=== PATIENT | male | born 1950 | race Caucasian/White ===

== ENCOUNTER 2017-06-14 10:25 | Emergency (ER) | payer MEDICAID ==
[2017-06-14 12:09] VITALS: BP 151/97
== END 2017-06-14 12:09 | disposition home or self-care (01) ==
LOC: ED 10:25
DX: J44.1 Chronic obstructive pulmonary disease with (acute) exacerbation (principal); F17.200 Nicotine dependence, unspecified, uncomplicated; Z71.6 Tobacco abuse counseling
CPT/HCPCS: 99406; J7512; J7613; J7644; Q0092

== ENCOUNTER 2017-09-12 10:14 | Emergency (ER) | payer MEDICAID ==
[~2017-09-12] VITALS: Ht 172.7 cm; Wt 58.0 kg
[2017-09-12 10:25] VITALS: Ht 172.7 cm; Wt 58.0 kg
[2017-09-12 11:40] VITALS: BP 148/68
== END 2017-09-12 11:40 | disposition home or self-care (01) ==
LOC: ED 10:14
DX: J44.1 Chronic obstructive pulmonary disease with (acute) exacerbation (principal); Z76.0 Encounter for issue of repeat prescription
CPT/HCPCS: J7512; J7613; J7644

== ENCOUNTER 2017-11-12 12:04 | Emergency (ER) | payer MEDICAID ==
[~2017-11-12] VITALS: Ht 172.7 cm; Wt 58.0 kg
[2017-11-12 12:08] VITALS: Ht 172.7 cm; Wt 58.0 kg
[2017-11-12 14:15] VITALS: BP 124/72
== END 2017-11-12 14:15 | disposition home or self-care (01) ==
LOC: ED 12:04
DX: J44.1 Chronic obstructive pulmonary disease with (acute) exacerbation (principal); F17.210 Nicotine dependence, cigarettes, uncomplicated
CPT/HCPCS: 99406; J7512; J7613; J7644

== ENCOUNTER 2018-01-21 09:00 | Emergency (ER) | payer MEDICAID ==
[~2018-01-21] VITALS: Ht 172.7 cm; Wt 57.6 kg
[2018-01-21 09:02] VITALS: Ht 172.7 cm; Wt 57.6 kg
[2018-01-21 09:35] LABS: BASOPHIL % 0.4 % (0-2)
[2018-01-21 09:39] LABS: PLATELET COUNT 116 x10^3mcL (130-400)
[2018-01-21 09:47] LABS: CALCIUM 9.1 mg/dL (8.5-10.1); CARBON DIOXIDE 31.7 mmol/L (21-32); CHLORIDE SERUM 105 mmol/L (98-107); CREATININE SERUM 0.8 mg/dL (0.7-1.3); GFR1 > 60 mL/min; GLUCOSE SERUM 109 mg/dL (74-106); POTASSIUM SERUM 4.8 mmol/L (3.5-5.1); SODIUM SERUM 139 mmol/L (136-145)
[2018-01-21 09:54] LABS: ALBUMIN 3.7 g/dL (3.4-5.0); ALKALINE PHOSPHATASE 75 U/L (46-116); ALT/SGPT 22 U/L (16-63); AST/SGOT 15 U/L (15-37); BILIRUBIN TOTAL 0.51 mg/dL (0.20-1.00); CHOLESTEROL 177 mg/dL (<200); HDL CHOLESTEROL 63 mg/dL (40-60); TOTAL PROTEIN, SERUM 6.7 g/dL (6.4-8.2)
[2018-01-21 11:15] VITALS: BP 127/74
== END 2018-01-21 11:15 | disposition home or self-care (01) ==
LOC: ED 09:00
PROVIDERS: Emergency Medicine
DX: J44.1 Chronic obstructive pulmonary disease with (acute) exacerbation (principal); F17.210 Nicotine dependence, cigarettes, uncomplicated
CPT/HCPCS: 36600; 83880; 99406; J2930; J7030; J7613; J7644; Q0092

== ENCOUNTER 2018-07-11 08:51 | Emergency (ER) | payer BC ==
[~2018-07-11] VITALS: Ht 165.1 cm; Wt 59.9 kg
[2018-07-11 08:56] VITALS: Ht 165.1 cm; Wt 59.9 kg
[2018-07-11 09:29] LABS: BASOPHIL % 0.8 % (0-2)
[2018-07-11 09:30] LABS: PLATELET COUNT 112 x10^3mcL (130-400); RED CELL DISTRIBUTION WIDTH 14.6 % (11.5-14.5)
[2018-07-11 09:38] LABS: CALCIUM 8.5 mg/dL (8.5-10.1); CARBON DIOXIDE 31.9 mmol/L (21-32); CHLORIDE SERUM 103 mmol/L (98-107); CREATININE SERUM 0.8 mg/dL (0.7-1.3); GFR1 > 60 mL/min; GLUCOSE SERUM 102 mg/dL (74-106); POTASSIUM SERUM 4.2 mmol/L (3.5-5.1); SODIUM SERUM 138 mmol/L (136-145)
[2018-07-11 09:44] LABS: ALBUMIN 3.5 g/dL (3.4-5.0); ALKALINE PHOSPHATASE 74 U/L (46-116); ALT/SGPT 26 U/L (16-63); AST/SGOT 15 U/L (15-37); BILIRUBIN TOTAL 0.3 mg/dL (0.20-1.00); CHOLESTEROL 140 mg/dL (<200); HDL CHOLESTEROL 52 mg/dL (40-60); TOTAL PROTEIN, SERUM 6.7 g/dL (6.4-8.2)
[2018-07-11 11:39] VITALS: BP 120/85
== END 2018-07-11 11:38 | disposition home or self-care (01) ==
LOC: ED 08:51
PROVIDERS: Emergency Medicine
DX: J44.1 Chronic obstructive pulmonary disease with (acute) exacerbation (principal); J45.909 Unspecified asthma, uncomplicated; F17.200 Nicotine dependence, unspecified, uncomplicated; Z89.022 Acquired absence of left finger(s)
CPT/HCPCS: 99406; J2930; J7030; J7613; J7644

== ENCOUNTER 2018-12-10 10:05 | Inpatient (IN) | payer MEDICAID ==
[~2018-12-10] VITALS: Ht 167.6 cm; Wt 51.3 kg
[2018-12-10 10:14] VITALS: Ht 167.6 cm; Wt 51.3 kg
--- NOTE | 2018-12-10 10:20 | NUR ---
PRESENTS TO ED FOR COUGH X5 DAYS WITH FEVER THAT STARTED LAST NIGHT. PT STS HE IS STILL A CURRENT SMOKER AND COUGH HAS GOTTEN SIGNIFICANTLY WORSE. REPORTS PRODUCTIVE COUGH WITH YELLOW SPUTUM; AUDIBLE RHONCHI TO BILATERAL UPPER LOBES WITH CONGESTED BILATERAL LOWER LOBES. CONNECTED TO FULL BUTTON SPINDLER, CHANGED INTO GOWN, CALL LIGHT IS WITHIN REACH. AWAITING MSE
--- NOTE | 2018-12-10 10:59 | NUR ---
AMBULATED TO BATHROOM WITH STEADY GAIT TO PROVIDE URINE SAMPLE
--- NOTE | 2018-12-10 11:02 | NUR ---
XRAY AT BEDSIDE
[2018-12-10 11:06] LABS: BASOPHIL % 0.5 % (0-2); PLATELET COUNT 223 x10^3mcL (130-400)
[2018-12-10 11:12] LABS: CALCIUM 9.1 mg/dL (8.5-10.1); CARBON DIOXIDE 31.5 mmol/L (21-32); CHLORIDE SERUM 106 mmol/L (98-107); CREATININE SERUM 0.7 mg/dL (0.7-1.3); GFR1 > 60 mL/min; GLUCOSE SERUM 135 mg/dL (74-106); POTASSIUM SERUM 4.6 mmol/L (3.5-5.1); SODIUM SERUM 146 mmol/L (136-145)
[2018-12-10 11:13] LABS: RED CELL DISTRIBUTION WIDTH 14.6 % (11.5-14.5)
[2018-12-10 11:22] LABS: UA SPECIFIC GRAVITY >=1.030 (1.005-1.035); microscopic required? YES; urine erythrocyte NEGATIVE (NEGATIVE)
[2018-12-10 11:24] LABS: ALKALINE PHOSPHATASE 67 U/L (46-116); ALT/SGPT 21 U/L (16-63); AMYLASE 30 U/L (25-115); AST/SGOT 9 U/L (15-37); LIPASE 53 IU/L (73-393); T4(THYROXINE) 7.5 ug/dL (4.7-13.3); TOTAL PROTEIN, SERUM 6.6 g/dL (6.4-8.2)
[2018-12-10 11:31] LABS: ALBUMIN 2.5 g/dL (3.4-5.0); CHOLESTEROL 110 mg/dL (<200); HDL CHOLESTEROL 21 mg/dL (40-60)
[2018-12-10 11:56] LABS: AMPHETAMINE QUAL UR NONE DETECTED (See below)
[2018-12-10] MEDS ORDERED: ALBUTEROL0.63 MG/3 NEB (12:11)
--- NOTE | 2018-12-10 13:04 | NUR ---
CALLED REPORT TO PAUL WAGNER TO ASSUME CARE OF PT IN TELE.
--- NOTE | 2018-12-10 13:30 | NUR ---
RECEIVED PATIENT FROM ED WITH NURSE VIA KELLIE. ADMIT STARTED BY SURU. PATIENT A/O X4 ON 5 L VIA NC, DECREASED TO 3. PATIENT NOT COMPLAINING OF PAIN AT THIS TIME. ONLY WITH OCCASIONAL COUGH. PLACED IN POSITION OF COMFORT, TELE 7. PATIENT ORIETED TO ROOM, CALL LIGHT FUNCTION AND NEED TO CALL FOR ASSISTANCE. BED IN LOWEST POSITION WITH HEAD OF BED RAISED TO FACILITATE BREATHING
[2018-12-10 13:32] VITALS: BP 117/61
--- NOTE | 2018-12-10 13:46 | NUR ---
RECEIVED PT FROM ED VIA [employer]. ORIENTED PT TO ROOM AND SURROUNDINGS. IV NOTED TO LAC PATENT AND INTACT. TELE 7 PLACED ON PT READING SR WITH PVC. INSTRUCTED PT ON THE USE OF CALL LIGHT FOR ASSISTANCE. ENDORSED PT TO PRIMARY NURSE KRISTY
--- NOTE | 2018-12-10 14:51 | NUR ---
PATIENT RESTING IN BED NO C/O SOB AT THIS TIME. SOLUMEDROL IVP GIVEN VIA IV LAC PATIENT. NEED MET, CALL LIGHT WITHIN REACH.
--- NOTE | 2018-12-10 16:02 | NUR ---
ADMINISTERED ANTIBIOTIC PER AUG. PATIENT SELF AMBULATED TO RESTROOM TO VOID. AFTER RETURNING TO SPO2 WAS 87 SO REPLACED NC WITH 2L O2. INSTRUCTED PATIENT TO CONTINUE TO COUGH UP SPUTUM IF ABLE AND TO CALL FOR ASSISTANCE IF HAVING DIFFICULTY BREATHING. CALL LIGHT WITHIN REACH
--- NOTE | 2018-12-10 16:52 | NUR ---
ADMINISTERED MEDICATION PER MAR. PATIENT SITTING UP IN BED, NO COMPLAINTS, NO SOB AT THIS TIME. CALL [facility] WITHIN REACH
[2018-12-10 17:10] VITALS: BP 120/73
[2018-12-10 19:50] VITALS: BP 111/60
--- NOTE | 2018-12-10 19:50 | NUR ---
RECEIVED PT FROM AM NURSE, PT ON BED WATCHING TV. PT AAOX4, TELE#7 DENIES CP/PRESSURE AT THIS TIME. [place]ALE PULSES TO BLE AND BUE, NO EDEMA NOTED. WHEEZZING TO SENTHIL UPPER LOBES, DIMINISHED BREATH SOUNDS TO BLI LOWER LOBES, BREATHING EVEN AND UNLABORED ON 2L NC O2 97% , NO SIGNS OF RESP DISTRESS NOTED. ABD SOFT AND ROUND, ACTIVE BOWEL SOUNDS X4 QUAD. VOIDS FREELY BRP, GENERALIZED WEAKNESS, ABULAROTY WITH ASSIST. SKIN INTACT, IV INFUSING WELL TO LAC. BED IN LOWEST POSITION, CALL LIGHT WITHING REACH, WILL CONTINUE TO MONITOR.
[2018-12-10 21:00] VITALS: BP 105/54
--- NOTE | 2018-12-11 05:00 | NUR ---
PT SLEPT WELL THROUGHOUT NIGHT, BREATHING EVEN AND UNLABORED, NO SIGNS OF RESP DISTRESS NOTED. IV TO LAC INFUSING WELL, ALL NEEDS ASSESSED AND ATTENDED. CALL LIGHT WITHING REACH, WILL ENDORSE CARE TO AM NURSE.
[2018-12-11 05:43] VITALS: BP 115/67
--- NOTE | 2018-12-11 07:43 | NUR ---
RECEIVED HAND OFF REPORT FROM OFF GOING RN. FOUND PATIENT A/O X4 ON 2L NC, PATIENT DOES NOT SEEM IN ANY DISTRESS BUT WAS SLOUCHED IN BED WITH FEET HANGING OFF END OF BED. ASSISTED PATIENT TO SIT UP IN BED WITH HOB RAISED. PATIENT DENIES SOB AT THIS TIME. CALL LIGHT WITHIN REACH
[2018-12-11 09:54] VITALS: BP 112/63
--- NOTE | 2018-12-11 12:20 | NUR ---
PATIENT RESTING IN BED, NO COMPLAINTS OF PAIN OR SOB. TOLERATING 02 WELL. CALL LIGHT WITHIN REACH
[2018-12-11 13:50] VITALS: BP 119/72
--- NOTE | 2018-12-11 15:10 | NUR ---
ADMINISTERED SOLUMEDROL AND ROCEHPIN PER MAR. PATIENT RESTING IN BED. CONTINUALLY SLOUCHING DOWN IN BED. INSTRCUTED PATEINT TO SIT UP IN BED TO PROMOTE LUNG EXPANSION. PATIENT REFUSES SAYING HE GETS TIRED OF SITTING UP IN BED. SCDS IN PLACE, CALL LIGHT WITHIN REACH
--- NOTE | 2018-12-11 15:39 | NUR ---
ADMINISTERED ANTIBIOTIC PER MAR WITH NO ISSUES. PATIENT COMFORTABLE WITH NO COMPLAINTS
[2018-12-11 16:39] VITALS: BP 113/69
[2018-12-11 19:30] VITALS: BP 121/65
--- NOTE | 2018-12-11 20:15 | NUR ---
RECEIVED REPORT FROM AM NURSE, PT IN BED WATCHING TV. AAOX4, TELE#7 NSR WITH ELEVATED T-WAVES, DENIES CP/PRESSURE AT THIS TIME. PALPABLE PULSES TO BLE AND BUE, NO EDEMA NOTED. WHEEZE TO SENTHIL UPPER LOBES, DIMINISHED LUNG SOUNDS TO SENTHIL LOWER LOBES, BREATHING EVEN AND UNLABORED, NO SIGNS OF RESP DISTRESS NOTED. VIDS FREELY BRP, GENERALIZED WEAKNESS, AMBULAROTY WITH ASSIST. SKIN INTACT. IV TO LAC INFUSING WELL. BED AT LOWEST POSITION, CALL LIGHT WITHING REACH. WILL CONTINUE TO MONITOR.
--- NOTE | 2018-12-12 05:01 | NUR ---
PT SLEPT AT INTERVALS THROUGHOUT NIGHT, BREATHING EVEN AND UNLABORED ON 2L NC N0 SIGNS OF RESP DISTRESS NOTED. ALL NEEDS ASSESSED AND ATTENDED, BED AT LOWEST POSITION, CALL LIGHT WITHING REACH, WILL ENDORSE CARE TO AM NURSE.
[2018-12-12 05:38] VITALS: BP 136/74
[2018-12-12 06:39] LABS: CARBON DIOXIDE 27.9 mmol/L (21-32); CHLORIDE SERUM 112 mmol/L (98-107); CREATININE SERUM 0.6 mg/dL (0.7-1.3); GFR1 > 60 mL/min; GLUCOSE SERUM 144 mg/dL (74-106); POTASSIUM SERUM 5.2 mmol/L (3.5-5.1); SODIUM SERUM 149 mmol/L (136-145)
[2018-12-12 06:44] LABS: PLATELET COUNT 249 x10^3mcL (130-400)
[2018-12-12 07:54] LABS: BASOPHIL % 0 % (0-2)
--- NOTE | 2018-12-12 08:50 | NUR ---
RT WITH PATIENT ADMINISTEREING BREATHING TREATMENT AND CONSULT FOR HOME 02. REPORTED PATIENT DESATED TO 84 ON RA. QUALIFIES FOR HOME O2
[2018-12-12 09:13] VITALS: BP 142/69
--- NOTE | 2018-12-12 13:42 | NUR ---
FOUND PATIENT SITTING UP ON SIDE OF BED WITH FEET OVER EDGE. PATIENT DENIES SHORTNESS OF BREATH, NO PAIN. UPDATED PATEINT ON PLAN OF CARE AND LAB RESULTS. INFORMED PATEINT OF NEED FOR HOME 02. PATEINT VERBALIZED UNDERSTANDING OF NEED TO WAIT FOR CASE AMNANGEMENT TO HELP WITH PLACEMENT OF HOME 02. CALL LIGHT WITHIN REACH.
[2018-12-12 13:55] VITALS: BP 127/64
--- NOTE | 2018-12-12 15:48 | NUR ---
PATIENT RESTING IN BED WATCHING TV, PER PATIENT DON'T NEED ANYTHING AT THIS TIME. ZITHROMAX 500MG IVPB INFUSING TO LAC IV PATENT, CALL LIGHT WITHIN REACH.
[2018-12-12 16:31] VITALS: BP 133/77
--- NOTE | 2018-12-12 17:11 | NUR ---
INFORMED MATERIAL YARD CLERK DESIRE THAT PATIENT POTASSIUM WAS 5.2 FROM THIS AM LABWORK. NO NEW ORDERS AT THIS TIME. MATERIAL YARD CLERK WISHES TO CONTINUE MONITORING
[2018-12-12 19:47] VITALS: BP 147/87
--- NOTE | 2018-12-12 19:47 | NUR ---
RECEIVED REPORT FROM AM NURSE, PT SITTING ON EDGE OF THE BED, WATCHING TV. AAOX4 . ON TELE#7 BP 147/87 HR81, DENIES CP/PRESSURE. PALPABLE PULSES TO BUE AND BLE, NO EDEMA NOTED. BREATHING EVEN AND UNLABORED ON 2L NC, DIMINISHED LUNG SOUNDS THROUGHOUT. ABD SOFT AND NON DISTENED, ACTIVE BOWEL SOUNDS ACTIVE X4 QUAD. VOIDS FREELY BRP, GENERALIZED WEAKNESS, ABLE TO AMBULATE WITH MINIMUM ASSIST. SKIN INTAC. IV TO LAC INFUSING WELL. BED AT LOWEST POSITION, CALL LIGHT WITHING REACH. WILL CONTINUE TO MONITOR.
--- NOTE | 2018-12-13 02:59 | NUR ---
PT SLEEPING COMFORTABLY IN BED, BREATHING EVEN AND UNLABORED ON 2L NC. NO SIGNS OF RESP DISTRESS NOTED. CALL LIGHT WITHING REACH. WILL CONTINUE TO MONITOR.
[2018-12-13 05:11] VITALS: BP 140/79
--- NOTE | 2018-12-13 05:14 | NUR ---
PT SLEPT AT INTERVALS THROUGHOUT NIGHT,BREATHING EVEN AND UNLABORED ON 2L NC, NO SIGNS OF ACUTE DISTRESS NOTED. ALL NEEDS ASSESSED AND ATTENDED. BED AT LOWEST POSITION, CALL LIGHT WITHING REACH, WILL ENDORSE CARE TO AM NURSE.
[2018-12-13 06:52] LABS: BASOPHIL % 0.3 % (0-2); PLATELET COUNT 270 x10^3mcL (130-400)
[2018-12-13 07:20] LABS: CARBON DIOXIDE 27.2 mmol/L (21-32); CHLORIDE SERUM 110 mmol/L (98-107); CREATININE SERUM 0.6 mg/dL (0.7-1.3); GFR1 > 60 mL/min; GLUCOSE SERUM 117 mg/dL (74-106); POTASSIUM SERUM 5.4 mmol/L (3.5-5.1); SODIUM SERUM 148 mmol/L (136-145)
[2018-12-13 07:33] VITALS: BP 146/84
--- NOTE | 2018-12-13 07:50 | NUR ---
RECEIVED PATIENT RESTING IN BED COMFORTABLY A/O X4, NO NEURO DEFICITS NOTED. TELE # [address], DENIES CHEST PAIN. PATIENT IS BREATHING EVEN AND UNLABBORED ON O2 2 L/MIN VIA NC, DENIES SOB, NO DISTRESS NOTED. DENIES ANY PAIN. IV TO LAC INTACT INFUSING NS AT 20 ML/HR FREE FROM REDNESS AND INFILTRATION. PATIENT IS CALM WITH CARE. INSTRUCTED TO CALL FOR ASSISTANCE IF NEEDED. SAFETY PRECAUTIONS MAINTAINED. WILL MONITOR.
[2018-12-13] MEDS ORDERED: SINGULAIR10 MG PO (08:14)
[2018-12-13] MEDS ORDERED: LEVAQUIN750 MG PO (08:14)
[2018-12-13] MEDS ORDERED: PREDNISONE20 MG PO (08:15)
--- NOTE | 2018-12-13 08:15 | NUR ---
PATIENT RESTING IN BED COMFORTABLY NO DISTRESS NOTED, DUE MEDICATION GIVEN TOLERATED WELL. RT AT BEDSIDE FOR BREATHING TREATMENT. WILL MONITOR.
[2018-12-13] MEDS ORDERED: BREO ELLIPTA1 PO1 IH (08:16)
--- NOTE | 2018-12-13 10:03 | NUR ---
ROOSEVELT GONZALEZ MADE AWARE OF K 5.4.
--- NOTE | 2018-12-13 11:07 | NUR ---
PATIENT SITTING UP IN BED RESTING COMFORTABLY NO DISTRESS NOTED. DUE MEDICATION GIVEN, TOLERATED WELL. ALL NEEDS ATTENDED TO. SAFETY PRECAUTIONS MAINTAINED. WILL MONITOR.
--- NOTE | 2018-12-13 12:14 | NUR ---
1. Recommend continuing regular diet.
--- NOTE | 2018-12-13 12:14 | NUR ---
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 According to patient he has been having off and on SOB for about a week, last night he developed a fever associated with chest pressure, due to the increase in sob and fever he was brought to the ER to be evaluated. RDN Visit (12/13): Patient was alert and awake and said that he ate most of his breakfast this morning. Patient said that he has 'good' appetite. Patient appeared to have lost lean body mass. Problem with: N/V/D/C: no Problems with: Chewing/Swallowing: no Current appetite: good Recent wt change: none %wt change: N/A Vitamin/Supplement use: none Special diet at home: regular Physical activity: heavy, does gardening etc for landlord Nutrition education given: Diet education provided using [facility] handout on 'COPD Nutrition Therapy'. Concepts such as small, frequent meals and harmful health effects of red meat were discussed. Food-drug interactions: none at this time Education given: N/A Estimated Nutritional Needs Based on actual body weight 53.2 kg Energy: 1600- 1860 kcal/d (30-35 kcal/kg) Protein: 64- 74 g/d (1.2-1.4 g/kg) - preserve LBM Fluid: 4924-2848 ml/d (1 ml/kcal) or per doctor Nutrition Diagnosis 1. Increased Energy expenditure related to increased metabolic demands as evidenced by COPD. Intervention 1. Recommend continuing regular diet. Monitor/Evaluate Goal: PO intake at least 75% of estimated needs Monitor: PO intake, Labs, GI function F/U in 7 days as low risk 12/20
[2018-12-13 12:15] VITALS: BP 135/78; BP 141/70
[2018-12-13 12:58] VITALS: BP 135/78
--- NOTE | 2018-12-13 13:45 | NUR ---
PATIENT SITTING UP AT EDGE OF BED. NOTED IV TO LAC CAME OUT, CATH INTACT. PATIENT REFUSED NEW IV INSERTION AT THIS TIME HE MAY POSSIBLY BE DISCHARGED HOME TODAY. ALL QUESTIONS AND CONCERNS ADDRESSED, SAFETY PRECAUTIONS MAINTAINED. WILL MONITOR.
--- NOTE | 2018-12-13 14:35 | NUR ---
VISITOR TALITA AT BEDSIDE SPEAKING WITH NOMAN BANKS VIA TELEPHONE IN REGARDS TO SETTING UP HOME OXYGEN. ALL QUESTIONS AND CONCERNS ADDRESSED. SAFETY PRECAUTIONS MAINTAINED.
[2018-12-13 16:43] VITALS: BP 141/70
--- NOTE | 2018-12-13 17:40 | NUR ---
PATIENT SITTING UP IN BED EATING DINNER, TOLERATING WELL, NO DISTRESS NOTED. PATIENT TOOK TELE MONITOR OFF AND IS REFUSING TO PLACE TELE BACK ON STATES "NO IM GOING HOME." PATIENT MADE AWARE PATIENT WILL BE D/C HOME ONCE HOME O2 IS ARRANGED. PATIENT VERBALIZED UNDERSTANDING, ALL NEEDS ATTENDED TO, SAFETY PRECAUTIONS MAINTAINED. WILL MONITOR.
--- NOTE | 2018-12-13 18:47 | NUR ---
REP FROM [facility] AT BEDSIDE TO DELIVER OXYGEN. PATIENT STABLE FOR DISCHARGE HOME, DISCHARGE INSTRUCTIONS, PRESCRIPTION, BELONGINGS LIST AND EDUCATION GIVEN TO PATIENT. PATIENT VERBALIZED UNDERSTANDING TO FOLLOW UP WITH PCP WITHIN 2-3 DAYS, PT TO SCHEDULED. ALL QUESTIONS AND CONCERNS ADDRESSED. TELE MONITOR REMOVED AND RETURNED, ID BANDS REMOVED. PATIENT ASSISTED DOWN TO LOBBY VIA WHEELCHAIR ACCOMPANIED BY NURSE AID. ALL PERSONAL BELONGINGS SENT WITH PATIENT.
== END 2018-12-13 18:47 | disposition home or self-care (01) | DRG 139 ==
LOC: ED 10:05 → DU 12:23
PROVIDERS: Emergency Medicine; ADMIT Internal Medicine
DX: J18.9 Pneumonia, unspecified organism (principal); J96.01 Acute respiratory failure with hypoxia; E43 Unspecified severe protein-calorie malnutrition; J44.1 Chronic obstructive pulmonary disease with (acute) exacerbation; F17.210 Nicotine dependence, cigarettes, uncomplicated; Z89.022 Acquired absence of left finger(s); Z68.1 Body mass index [BMI] 19.9 or less, adult
CPT/HCPCS: 36600; 83880; 99406; G0378; J0132; J0456; J0696; J1956; J2920; J2930; J7030; J7613; J7620; J7644; Q0092

== ENCOUNTER 2020-09-05 14:27 | Emergency (ER) | payer MEDICAID ==
[~2020-09-05] VITALS: Ht 172.7 cm; Wt 68.0 kg
[~2020-09-05 14:27] MED LIST: ALBUTEROL0.63 MG/3 NEB; BREO ELLIPTA1 PO1 IH; LEVAQUIN750 MG PO; PREDNISONE20 MG PO; SINGULAIR10 MG PO
[2020-09-05 14:55] VITALS: BP 124/72; Ht 172.7 cm; Wt 68.0 kg
[2020-09-05] MEDS ORDERED: IBU400 M1 PO (16:52)
[2020-09-05] MEDS ORDERED: IBU600 M2 PO (17:41)
[2020-09-05] MEDS ORDERED: ACETAMINOPHEN-H1 TA1 PO (17:41)
== END 2020-09-05 18:06 | disposition home or self-care (01) ==
LOC: ED 14:27
DX: S92.002A Unspecified fracture of left calcaneus, initial encounter for closed fracture (principal); Z89.022 Acquired absence of left finger(s); W11.XXXA Fall on and from ladder, initial encounter; Y93.89 Activity, other specified; Y92.89 Other specified places as the place of occurrence of the external cause; Y99.8 Other external cause status; J44.9 Chronic obstructive pulmonary disease, unspecified
CPT/HCPCS: Q0162